=== PATIENT | male | born 2000 | race Caucasian/White ===

== ENCOUNTER 2021-06-17 16:47 | Observation (INO) ==
[2021-06-17] MEDS ORDERED: LORazepam 2 MG/4 ML VIAL ONE (16:53)
[2021-06-17] MEDS ORDERED: SODIUM CHLORIDE 0.9% 1000ML 1,000 ML IV ONE ×2 (16:53→17:52)
[2021-06-17] MEDS ORDERED: THIAMINE HCL 200 MG in SODIUM CHLORIDE 0.9% 50 ML IV STA (16:53)
[2021-06-17] MEDS ORDERED: LORazepam 2 MG/4 ML VIAL IV STA (16:53)
--- NOTE | 2021-06-17 17:05 | Emergency Department Note ---
Impression & Plan Alcohol withdrawal, Rhabdomyolysis ED Provider Note NAME: YONY KOWALSKI AGE: 20 SEX: M : 2000 ARRIVES VIA: Ambulance INFORMANT: Patient, EMS ED PROVIDER(S): Andreas Roberson DO CHIEF COMPLAINT: Muscle cramps HPI: The patient is a 20-year-old male who presented to the emergency department by ambulance for muscle cramping. The patient started having muscle cramping mostly in his legs over the course the last few hours. The patient was very diaphoretic. 911 was called. On route the patient received IV fluids. The patient denies having any chest pain or shortness of breath but does complain of palpitations. He denies having any abdominal pain nausea or vomiting. The patient does admit to daily alcohol use but has not used any alcohol over the last 48 hours. He denies having any headache or recent trauma. He states he has severe muscle cramping over both lower extremities. He states the pain is moderate to severe. He denies any trauma to his legs. He denies having any rectal bleeding. He has no history of withdrawal or alcohol-related seizures. ROS: See above HPI for pertinent positives & negatives. A total of 10 systems reviewed and were otherwise negative. PAST MEDICAL HISTORY: See Below PAST SURGICAL HISTORY: See Below FAMILY HISTORY: See Below SOCIAL HISTORY: See Below HOME MEDICATIONS: See Below ALLERGIES: See Below VITALS: See Below PHYSICAL EXAMINATION: GENERAL: The patient is awake and alert. The patient is very anxious appearing and appears to be in significant distress. EYES: The conjunctivae are clear. The pupils are round and reactive. EARS, NOSE, MOUTH AND THROAT: The nose is without any evidence of any deformity. NECK: The neck is nontender and supple. RESPIRATORY: Normal respiratory effort is noted there is no evidence of wheezing rhonchi or rales CARDIOVASCULAR: Tachycardic and regular heart sounds were noted to auscultation. There is no murmur. GASTROINTESTINAL: The abdomen is soft. Abdomen is nontender. MUSCULOSKELETAL/EXTREMITIES: There is no evidence of gross deformity full range of motion is noted in the hips and shoulders. SKIN: Skin is cool and diaphoretic. There was no significant pedal edema noted.. NEUROLOGIC: Patient is awake alert and oriented x3 strength is symmetric patellar reflexes are 2+ bilaterally MEDICAL DECISION MAKING: The patient is a 20-year-old male who presented to the emergency department for an evaluation of leg pain. The patient arrived via ambulance. He was very diaphoretic. He was very tachycardic and hypertensive. The patient admitted to significant amounts of alcohol use but has not used alcohol in the last 48 hours. His history and physical exam appear to be consistent with withdrawal. He was treated with IV fluids in the emergency department as well as IV Ativan. On reevaluation he was significantly improved. I discussed the patient's laboratory and radiographic studies with him. Given his findings I also [facility] have agreed to evaluate the patient in the emergency department for further management and disposition. Triage Nursing notes reviewed. Prior medical records reviewed Vital Signs: reviewed and remarkable for no significant abnormalities Differential diagnosis: Overdose, toxicologic, infection, hypoglycemia, electrolyte abnormalities, cardiac sources, intracerebral event, neurologic, trauma, as well as other pathologies. ER treatment provided: See below Diagnostics interpreted by me: ECG: EKG was obtained in the emergency department. My interpretation is sinus tachycardia at 109 bpm. There was no ectopy. There was no acute ST segment abnormalities noted. Diffuse Q waves were noted. No previous tracing was available. Cardiac Monitoring: An order was placed for continuous cardiac monitoring. The monitor shows a rate of 77 bpm with sinus rhythm. Laboratory studies: As stated above and show below. Imaging studies: See below Consultation(s): [id number]: I discussed this case with Diana [facility] will [facility] the patient in the emergency department. Past Med/Surg History Medical History (Updated 06/18/21 @ 00:14 by Andreas Roberson DO) History of anxiety History of depression Social History Smoking Status: Never smoker Tobacco Type: Cigarettes Hx Alcohol Use: Yes Alcohol type: hard liquor Alcohol Intake Frequency: 4 or More x per/Week Hx Substance Use: Yes Prescribed Medications: Marijuana Preferred Language: Guamanian Communication Ability: Effective Beliefs That Will Affect Care: None Current Living Situation: Parent Current Living Situation Comment: lives with Mom Feels Safe at Home: No Is there a partner from a previous relationship who is making you feel unsafe now?: No Any Concerns about Your Family Situation: No Allergies Allergies Allergy/AdvReac Type Severity Reaction Status Date / Time No Known Allergies Allergy Unverified 06/17/21 17:39 Home Meds Home Medications Medication Instructions Recorded Confirmed bupropion HCl 150 mg 24 hr tablet, 150 mg PO DAILY 06/17/21 06/17/21 extended release escitalopram oxalate 10 mg tablet 10 mg PO DAILY 06/17/21 06/17/21 Results & Data (ED) Vital Signs Vital Signs - 24 hr 06/17/21 16:59 Temperature 36.8 C Temperature Source Oral Pulse Rate 162 H Pulse Rate [Apical] 162 H Respiratory Rate 33 H Blood Pressure 167/94 H Blood Pressure [Right Arm] 167/94 H Blood Pressure Mean 118 Blood Pressure Mean [Right Arm] 118 Blood Pressure Position Sitting Pulse Oximetry 99 Oxygen Delivery Method Room Air Sepsis Recent Fever Within 48 Hours No Sepsis New/Unexplained Change in Mental Status N/A Sepsis Action Taken by Nursing No Action Required Home Medications Current Medication List: was personally reviewed by me Laboratory Data Attestation: I reviewed the patient's lab results. Result diagrams: 06/17/21 17:10 06/17/21 17:10 Lab Results 06/17/21 06/17/21 06/17/21 Range/Units 17:10 17:10 17:10 WBC 13.61 H (4.8-10.8) K/uL RBC 4.79 (4.7-6.1) M/uL Hgb 14.5 (14.0-18.0) g/dL Hct 43.6 (42-52) % MCV 91.0 (80-100) fL MCH 30.3 (25-34) pg MCHC 33.3 (32-36) g/dL RDW Std Deviation 43.7 (36.4-46.3) fL RDW Coeff of Jazmyn 13.2 (11.5-14.5) % Plt Count 432 H (130-400) K/uL MPV 8.6 (7.4-10.4) fL Immature Gran % (Auto) 0.3 % Neut % (Auto) 78.0 % Lymph % (Auto) 13.0 % Ritchie % (Auto) 8.4 % Eos % (Auto) 0.2 % Baso % (Auto) 0.1 % Neut # (Auto) 10.61 H (1.4-6.5) K/uL Lymph # (Auto) 1.77 (1.2-3.4) K/uL Ritchie # (Auto) 1.14 H (0.11-0.59) K/uL Eos # (Auto) 0.03 (0-0.5) K/uL Baso # (Auto) 0.02 (0-0.2) K/uL Immature Gran # (Auto) 0.04 H (0.00-0.02) K/uL PT 10.9 (9.0-12.0) Seconds INR 1.1 (0.9-1.1) APTT 28.4 (21.0-31.0) Seconds PTT Ratio 1.1 Sodium 140 (136-145) mmol/L Potassium 4.0 (3.5-5.1) mmol/L Chloride 104 (98-107) mmol/L Carbon Dioxide 19 L (21-32) mmol/L Anion Gap 17.0 H (3-11) BUN 16 (7-18) mg/dl Creatinine 1.19 (0.6-1.4) mg/dl Est Cr Clr Drug Dosing 108.7 ml/min Est GFR ( Amer) 101.3 ml/min Est GFR (Non-Af Amer) 87.4 ml/min BUN/Creatinine Ratio 13.0 (10-20) Glucose 143 H (70-99) mg/dl Calcium 9.2 (8.5-10.1) mg/dl Phosphorus (2.5-4.9) mg/dl Magnesium 2.3 (1.8-2.4) mg/dl Total Bilirubin 2.1 H (0.2-1) mg/dl AST 46 H (15-37) U/L ALT 35 (12-78) U/L Alkaline Phosphatase 75 (45-117) U/L Total Creatine Kinase 1136 H (39-308) U/L Troponin I < 0.015 (0-0.045) ng/ml Total Protein 8.5 H (6.4-8.2) gm/dl Albumin 4.4 (3.4-5.0) gm/dl Globulin 4.1 H (2.5-4.0) gm/dl Albumin/Globulin Ratio 1.1 (0.9-2) Lipase 48 L (73-393) U/L Urine Color Urine Appearance (Clear) Urine pH (4.5-7.5) Ur Specific [place] (1.000-1.030) Urine Protein (Negative) Urine Glucose (UA) (Negative) Urine Ketones (Negative) Urine Blood (Negative) Urine Nitrite (Negative) Urine Bilirubin (Negative) Urine Urobilinogen (Negative) Ur Leukocyte Esterase (Negative) Urine WBC (Auto) (0-5) /hpf Urine RBC (Auto) (0-4) /hpf U Hyaline Cast (Auto) (0-5) /lpf U Epithel Cells (Auto) (0-5) /lpf Urine Bacteria (Auto) (Negative) Salicylates (2.8-20) mg/dl Urine Opiates Screen (Neg) Ur Methadone, Qual (Neg) Acetaminophen (10-30) ug/ml Urine Barbiturates (Neg) Ur Phencyclidine (PCP) (Neg) U Amphetamin/Meth Scrn (Neg) MDMA (Ecstasy) Screen (Neg) U Benzodiazepines Scrn (Neg) Ur Cocaine Metabolite (Neg) U Marijuana (THC) Screen (Neg) Ethyl Alcohol mg/dL (0-3) mg/dl COVID-19 Eval Order SARS-CoV-2 (PCR) (Negative) 06/17/21 06/17/21 06/17/21 Range/Units 17:10 17:10 17:10 WBC (4.8-10.8) K/uL RBC (4.7-6.1) M/uL Hgb (14.0-18.0) g/dL Hct (42-52) % MCV (80-100) fL MCH (25-34) pg MCHC (32-36) g/dL RDW Std Deviation (36.4-46.3) fL RDW Coeff of Jazmyn (11.5-14.5) % Plt Count (130-400) K/uL MPV (7.4-10.4) fL Immature Gran % (Auto) % Neut % (Auto) % Lymph % (Auto) % Ritchie % (Auto) % Eos % (Auto) % Baso % (Auto) % Neut # (Auto) (1.4-6.5) K/uL Lymph # (Auto) (1.2-3.4) K/uL Ritchie # (Auto) (0.11-0.59) K/uL Eos # (Auto) (0-0.5) K/uL Baso # (Auto) (0-0.2) K/uL Immature Gran # (Auto) (0.00-0.02) K/uL PT (9.0-12.0) Seconds INR (0.9-1.1) APTT (21.0-31.0) Seconds PTT Ratio Sodium (136-145) mmol/L Potassium (3.5-5.1) mmol/L Chloride (98-107) mmol/L Carbon Dioxide (21-32) mmol/L Anion Gap (3-11) BUN (7-18) mg/dl Creatinine (0.6-1.4) mg/dl Est Cr Clr Drug Dosing ml/min Est GFR ( Amer) ml/min Est GFR (Non-Af Amer) ml/min BUN/Creatinine Ratio (10-20) Glucose (70-99) mg/dl Calcium (8.5-10.1) mg/dl Phosphorus 2.9 (2.5-4.9) mg/dl Magnesium (1.8-2.4) mg/dl Total Bilirubin (0.2-1) mg/dl AST (15-37) U/L ALT (12-78) U/L Alkaline Phosphatase (45-117) U/L Total Creatine Kinase (39-308) U/L Troponin I (0-0.045) ng/ml Total Protein (6.4-8.2) gm/dl Albumin (3.4-5.0) gm/dl Globulin (2.5-4.0) gm/dl Albumin/Globulin Ratio (0.9-2) Lipase (73-393) U/L Urine Color Urine Appearance (Clear) Urine pH (4.5-7.5) Ur Specific [place] (1.000-1.030) Urine Protein (Negative) Urine Glucose (UA) (Negative) Urine Ketones (Negative) Urine Blood (Negative) Urine Nitrite (Negative) Urine Bilirubin (Negative) Urine Urobilinogen (Negative) Ur Leukocyte Esterase (Negative) Urine WBC (Auto) (0-5) /hpf Urine RBC (Auto) (0-4) /hpf U Hyaline Cast (Auto) (0-5) /lpf U Epithel Cells (Auto) (0-5) /lpf Urine Bacteria (Auto) (Negative) Salicylates (2.8-20) mg/dl Urine Opiates Screen (Neg) Ur Methadone, Qual (Neg) Acetaminophen (10-30) ug/ml Urine Barbiturates (Neg) Ur Phencyclidine (PCP) (Neg) U Amphetamin/Meth Scrn (Neg) MDMA (Ecstasy) Screen (Neg) U Benzodiazepines Scrn (Neg) Ur Cocaine Metabolite (Neg) U Marijuana (THC) Screen (Neg) Ethyl Alcohol mg/dL < 3.0 (0-3) mg/dl COVID-19 Eval Order SARS-CoV-2 (PCR) (Negative) 06/17/21 06/17/21 06/17/21 Range/Units 17:31 17:31 18:17 WBC (4.8-10.8) K/uL RBC (4.7-6.1) M/uL Hgb (14.0-18.0) g/dL Hct (42-52) % MCV (80-100) fL MCH (25-34) pg MCHC (32-36) g/dL RDW Std Deviation (36.4-46.3) fL RDW Coeff of Jazmyn (11.5-14.5) % Plt Count (130-400) K/uL MPV (7.4-10.4) fL Immature Gran % (Auto) % Neut % (Auto) % Lymph % (Auto) % Ritchie % (Auto) % Eos % (Auto) % Baso % (Auto) % Neut # (Auto) (1.4-6.5) K/uL Lymph # (Auto) (1.2-3.4) K/uL Ritchie # (Auto) (0.11-0.59) K/uL Eos # (Auto) (0-0.5) K/uL Baso # (Auto) (0-0.2) K/uL Immature Gran # (Auto) (0.00-0.02) K/uL PT (9.0-12.0) Seconds INR (0.9-1.1) APTT (21.0-31.0) Seconds PTT Ratio Sodium (136-145) mmol/L Potassium (3.5-5.1) mmol/L Chloride (98-107) mmol/L Carbon Dioxide (21-32) mmol/L Anion Gap (3-11) BUN (7-18) mg/dl Creatinine (0.6-1.4) mg/dl Est Cr Clr Drug Dosing ml/min Est GFR ( Amer) ml/min Est GFR (Non-Af Amer) ml/min BUN/Creatinine Ratio (10-20) Glucose (70-99) mg/dl Calcium (8.5-10.1) mg/dl Phosphorus (2.5-4.9) mg/dl Magnesium (1.8-2.4) mg/dl Total Bilirubin (0.2-1) mg/dl AST (15-37) U/L ALT (12-78) U/L Alkaline Phosphatase (45-117) U/L Total Creatine Kinase (39-308) U/L Troponin I (0-0.045) ng/ml Total Protein (6.4-8.2) gm/dl Albumin (3.4-5.0) gm/dl Globulin (2.5-4.0) gm/dl Albumin/Globulin Ratio (0.9-2) Lipase (73-393) U/L Urine Color Dark Yellow Urine Appearance Turbid A (Clear) Urine pH 5.5 (4.5-7.5) Ur Specific [place] 1.034 H (1.000-1.030) Urine Protein 1+ H (Negative) Urine Glucose (UA) 1+ H (Negative) Urine Ketones 2+ H (Negative) Urine Blood Negative (Negative) Urine Nitrite Negative (Negative) Urine Bilirubin 1+ H (Negative) Urine Urobilinogen Negative (Negative) Ur Leukocyte Esterase Negative (Negative) Urine WBC (Auto) 1-5 (0-5) /hpf Urine RBC (Auto) 0-4 (0-4) /hpf U Hyaline Cast (Auto) 10-30 H (0-5) /lpf U Epithel Cells (Auto) 10-20 H (0-5) /lpf Urine Bacteria (Auto) Negative (Negative) Salicylates (2.8-20) mg/dl Urine Opiates Screen (Neg) Ur Methadone, Qual (Neg) Acetaminophen (10-30) ug/ml Urine Barbiturates (Neg) Ur Phencyclidine (PCP) (Neg) U Amphetamin/Meth Scrn (Neg) MDMA (Ecstasy) Screen (Neg) U Benzodiazepines Scrn (Neg) Ur Cocaine Metabolite (Neg) U Marijuana (THC) Screen (Neg) Ethyl Alcohol mg/dL (0-3) mg/dl COVID-19 Eval Order Covid19 at [facility] SARS-CoV-2 (PCR) NEGATIVE (Negative) 06/17/21 Range/Units 18:17 WBC (4.8-10.8) K/uL RBC (4.7-6.1) M/uL Hgb (14.0-18.0) g/dL Hct (42-52) % MCV (80-100) fL MCH (25-34) pg MCHC (32-36) g/dL RDW Std Deviation (36.4-46.3) fL RDW Coeff of Jazmyn (11.5-14.5) % Plt Count (130-400) K/uL MPV (7.4-10.4) fL Immature Gran % (Auto) % Neut % (Auto) % Lymph % (Auto) % Ritchie % (Auto) % Eos % (Auto) % Baso % (Auto) % Neut # (Auto) (1.4-6.5) K/uL Lymph # (Auto) (1.2-3.4) K/uL Ritchie # (Auto) (0.11-0.59) K/uL Eos # (Auto) (0-0.5) K/uL Baso # (Auto) (0-0.2) K/uL Immature Gran # (Auto) (0.00-0.02) K/uL PT (9.0-12.0) Seconds INR (0.9-1.1) APTT (21.0-31.0) Seconds PTT Ratio Sodium (136-145) mmol/L Potassium (3.5-5.1) mmol/L Chloride (98-107) mmol/L Carbon Dioxide (21-32) mmol/L Anion Gap (3-11) BUN (7-18) mg/dl Creatinine (0.6-1.4) mg/dl Est Cr Clr Drug Dosing ml/min Est GFR ( Amer) ml/min Est GFR (Non-Af Amer) ml/min BUN/Creatinine Ratio (10-20) Glucose (70-99) mg/dl Calcium (8.5-10.1) mg/dl Phosphorus (2.5-4.9) mg/dl Magnesium (1.8-2.4) mg/dl Total Bilirubin (0.2-1) mg/dl AST (15-37) U/L ALT (12-78) U/L Alkaline Phosphatase (45-117) U/L Total Creatine Kinase (39-308) U/L Troponin I (0-0.045) ng/ml Total Protein (6.4-8.2) gm/dl Albumin (3.4-5.0) gm/dl Globulin (2.5-4.0) gm/dl Albumin/Globulin Ratio (0.9-2) Lipase (73-393) U/L Urine Color Urine Appearance (Clear) Urine pH (4.5-7.5) Ur Specific [place] (1.000-1.030) Urine Protein (Negative) Urine Glucose (UA) (Negative) Urine Ketones (Negative) Urine Blood (Negative) Urine Nitrite (Negative) Urine Bilirubin (Negative) Urine Urobilinogen (Negative) Ur Leukocyte Esterase (Negative) Urine WBC (Auto) (0-5) /hpf Urine RBC (Auto) (0-4) /hpf U Hyaline Cast (Auto) (0-5) /lpf U Epithel Cells (Auto) (0-5) /lpf Urine Bacteria (Auto) (Negative) Salicylates (2.8-20) mg/dl Urine Opiates Screen Neg (Neg) Ur Methadone, Qual Neg (Neg) Acetaminophen (10-30) ug/ml Urine Barbiturates Neg (Neg) Ur Phencyclidine (PCP) Neg (Neg) U Amphetamin/Meth Scrn Neg (Neg) MDMA (Ecstasy) Screen Pos H (Neg) U Benzodiazepines Scrn Neg (Neg) Ur Cocaine Metabolite Pos H (Neg) U Marijuana (THC) Screen Pos H (Neg) Ethyl Alcohol mg/dL (0-3) mg/dl COVID-19 Eval Order SARS-CoV-2 (PCR) (Negative) Administered Medications Folic Acid (Folic Acid 1 Mg Tab) 1 mg PO QAM [facility] Stop: 07/17/21 20:09 Last Admin: 06/17/21 21:51 Dose: 1 mg Documented by: [id number] Sodium Chloride (Nss 1000ml) 1,000 mls @ 150 mls/hr IV .Q6H40M [facility] Stop: 06/18/21 16:09 Last Admin: 06/17/21 20:51 Dose: 150 mls/hr Documented by: [id number] Thiamine HCl (Thiamine Hcl 100 Mg Tab) 100 mg PO QAM JONAH Stop: 07/17/21 20:09 Last Admin: 06/17/21 21:51 Dose: 100 mg Documented by: [id number] Discontinued Medications Gabapentin (Gabapentin 800mg Alcohol Withdrawal Load) 1 ea PO NOW STA; Protocol Stop: 06/17/21 19:28 Last Admin: 06/17/21 20:42 Dose: 1 ea Documented by: [id number] Gabapentin (Gabapentin 400 Mg Cap) 800 mg PO NOW ONE Stop: 06/17/21 19:28 Last Admin: 06/17/21 21:51 Dose: 800 mg Documented by: [id number] Lorazepam (Ativan) 2 mg in 4 mls @ 4 mls/min IV NOW STA Stop: 06/17/21 16:54 Last Admin: 06/17/21 17:25 Dose: 4 mls/min Documented by: [id number] Sodium Chloride (Nss 1000ml) 1,000 mls @ 999 mls/hr IV .Q1H1M ONE Stop: 06/17/21 17:53 Last Infusion: 06/17/21 18:18 Dose: 0 mls/hr Documented by: [id number] Admin: 06/17/21 17:04 Dose: 999 mls/hr Documented by: [id number] Thiamine HCl 200 mg/ Sodium (Chloride) 52 mls @ 208 mls/hr IV NOW STA Stop: 06/17/21 17:07 Last Infusion: 06/17/21 18:18 Dose: 0 mls/hr Documented by: [id number] Admin: 06/17/21 17:48 Dose: 208 mls/hr Documented by: [id number] Sodium Chloride (Nss 1000ml) 1,000 mls @ 999 mls/hr IV .Q1H1M ONE Stop: 06/17/21 18:52 Last Infusion: 06/17/21 18:18 Dose: 0 mls/hr Documented by: [id number] Admin: 06/17/21 18:01 Dose: 999 mls/hr Documented by: [id number] Lorazepam (Lorazepam 2 Mg/4 Ml Vial) Confirm Administered Dose 2 mg .ROUTE .STK- MED ONE Stop: 06/17/21 16:54 Last Increment: 06/17/21 17:19 Dose: 1 mg Documented by: [id number] Imaging Data Radiologist's Impression: Chest X-Ray 06/17/21 16:53 SINGLE VIEW CHEST CLINICAL HISTORY: Palpitations. FINDINGS: An AP, portable, upright chest radiograph is obtained. No prior studies are available for comparison at the time of dictation. The cardiomediastinal silhouette is unremarkable. The lungs and pleural spaces are clear. No pneumothorax is seen. The bony thorax is grossly intact. IMPRESSION: No active disease in the chest. ACT 112: Negative or not required by law. Electronically signed by: Taj Cooper M.D. 06/17/2021 5:28 PM Discharge Plan Visit Data Chief Complaint: Illness Stated Complaint: Leg cramps ED Provider: Andreas Roberson Discharge Problem: Alcohol withdrawal, Rhabdomyolysis Patient Disposition: Admitted As Inpatient Condition: Good Discharge Instructions Interventions: ED Discharge Assessment Last Done: 06/17/21 19:54 Discharge Problem: Alcohol withdrawal Qualifiers: Complication of substance-induced condition: with unspecified complication Qualified Code(s): F10.239 - Alcohol dependence with withdrawal, unspecified Rhabdomyolysis Qualifiers: Rhabdomyolysis type: non-traumatic Qualified Code(s): M62.82 - Rhabdomyolysis
[2021-06-17 17:23] LABS: Basophils # (auto) 0.02 K/uL (0-0.2); Basophils % (auto) 0.1 %; Eosinophils # (auto) 0.03 K/uL (0-0.5); Eosinophils % (auto) 0.2 %; Hematocrit (blood only) 43.6 % (42-52); Hemoglobin 14.5 g/dL (14.0-18.0); Immature Granulocytes # (auto) 0.04 K/uL (0.00-0.02); Immature Granulocytes % (auto) 0.3 %; Lymphocytes # (auto) 1.77 K/uL (1.2-3.4); Mean Corpuscular Hemoglobin 30.3 pg (25-34); Mean Corpuscular Hgb Conc 33.3 g/dL (32-36); Mean Platelet Volume 8.6 fL (7.4-10.4); Monocytes # (auto) 1.14 K/uL (0.11-0.59); Monocytes % (auto) 8.4 %; Neutrophils # (auto) 10.61 K/uL (1.4-6.5); Platelet Count 432 K/uL (130-400); RDW Coefficient of Variation 13.2 % (11.5-14.5); RDW Standard Deviation 43.7 fL (36.4-46.3); Red Blood Count 4.79 M/uL (4.7-6.1); White Blood Count 13.61 K/uL (4.8-10.8)
--- NOTE | 2021-06-17 17:30 | XRay Report ---
SINGLE VIEW CHEST CLINICAL HISTORY: Palpitations. FINDINGS: An AP, portable, upright chest radiograph is obtained. No prior studies are available for c omparison at the time of dictation. The cardiomediastinal silhouette is unremarkable. The lungs and pleural spaces are clear. No pneumothorax is seen. The bony thorax is grossly intact. IMPRESSION: No active disease in the chest. ACT 112: Negative or not required by law. Electronically signed by: Taj Cooper M.D. 06/17/2021 5:28 PM
[2021-06-17 17:33] LABS: INR 1.1 (0.9-1.1); Partial Thromboplastin Ratio 1.1; Partial Thromboplastin Time 28.4 Seconds (21.0-31.0); Prothrombin Time 10.9 Seconds (9.0-12.0)
[2021-06-17 17:41] LABS: Alanine Aminotransferase 35 U/L (12-78); Albumin Level 4.4 gm/dl (3.4-5.0); Aspartate Aminotransferase 46 U/L (15-37); Blood Urea Nitrogen 16 mg/dl (7-18); Calcium 9.2 mg/dl (8.5-10.1); Carbon Dioxide 19 mmol/L (21-32); Chloride 104 mmol/L (98-107); Creatinine Clr Calc Pharmacy 108.7 ml/min; Est GFR (African American) 101.3 ml/min; Est GFR (Non-African American) 87.4 ml/min; Glucose 143 mg/dl (70-99); Lipase 48 U/L (73-393); Magnesium 2.3 mg/dl (1.8-2.4); Sodium 140 mmol/L (136-145)
[2021-06-17 17:56] LABS: Albumin Globulin Ratio 1.1 (0.9-2); Alkaline Phosphatase 75 U/L (45-117); Bilirubin,Total 2.1 mg/dl (0.2-1); Creatine Kinase 1136 U/L (39-308); Globulin 4.1 gm/dl (2.5-4.0); Total Protein 8.5 gm/dl (6.4-8.2); Troponin I < 0.015 ng/ml (0-0.045)
--- NOTE | 2021-06-17 18:40 | History & Physical Report ---
Date of Service June 17, 2021 Assessment & Plan (1) Alcohol withdrawal: Plan: -Admit to [facility] with telemetry -Alcohol withdrawal scoring, gabapentin load and taper - Tachycardia with HR in 160s, monitor - Administered Ativan IV in the ER, likely what is causing him to be slightly drowsy currently, patient reports feeling overall better at this point - NSS at 150 ml/hr x 3 bags then if tolerating po intake can reduce fluids - Thiamine, folic acid, and mvi ordered - Check CT head with hx of possible fall -I cannot find record of previous ER visit Friday night, however the patient mentions that he has a fake ID which he uses to buy alcohol since he is undera [employer], and question if a different patient account was created during that visit ?? -Psych consult - will need outpatient therapy, counseling, continue wellbutrin and lexapro for now (2) Rhabdomyolysis: Plan: - IVFs as above - Bruising on bilateral wrists, ? from restraints on Friday? small amount of ecchymosis on posterior R triceps region ? from blood pressure cuff - CT head as above - No other focal point of obvious injury (3) History of anxiety: Plan: - Psych consult - continue medications as above (4) History of depression: Plan: - Psych consult - continue medications as above (5) Marijuana use: Plan: - Cessation advised DVT PPx: - teds CODE: Full code Dispo: From home, likely to remain in the hospital x 1-2 days History of Present Illness Chief Complaint: This is a 20 yo M with PMHx of anxiety, depression who presents with severe muscle cramps in his legs. His girlfriend and her mother are present with him at bedside. They report that he was here on Friday after being picked up by police and brought in for alcohol intoxication. He required soft restraints around his wrists due to aggitation. They are unaware if he fell at some point on Friday, however were told that at that time his potassium was low, it was replaced, he was given fluids and he was sent home. 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 The patient presented today with increased sweating, palpitations, dizziness, and generalized ill feeling with severe muscle soreness everywhere. Yesterday he was nauseous and vomited at home. He reports his urine is dark today compared to normal. Patient admits that he typically drinks maximum one quarter of a bottle of tequila daily, sometimes mixed with beer or other liquor such as vodka. The last time he drank alcohol was on Friday night. When asked if he wants to stop drinking alcohol, he says "in general, no". He uses a fake ID to obtain alcohol or else has other friends by his alcohol for him. He smokes marijuana routinely, 2-10 times daily. Girlfriend reports patient's father was an addict of recreational drugs, but not alcohol. He has a cousin who also drinks large amounts of alcohol. He does not smoke tobacco. He follows with psychiatry as an outpatient, but cannot recall the last time he seen them. He has been taking Wellbutrin 150 mg daily as well as Lexapro 10 mg daily for anxiety and depression. Missed these doses yesterday but other than that takes them routinely. He is found to be in rhabdomyolysis with a CK level = 1136, and appears to be in acute alcohol withdrawal. AST is mildly elevated at 46, anion gap of 17, leukocytosis with 13.6. Glucose is slightly elevated at 143 however he has not been able to eat anything today. Primary Care Provider: NO PCP Allergies Allergy/AdvReac Type Severity Reaction Status Date / Time No Known Allergies Allergy Unverified 06/17/21 17:39 Home Medications Medication Instructions Recorded Confirmed Type bupropion HCl 150 mg 24 hr tablet, 150 mg PO DAILY 06/17/21 06/17/21 History extended release escitalopram oxalate 10 mg tablet 10 mg PO DAILY 06/17/21 06/17/21 History Past Med/Surg History Medical History (Updated 06/18/21 @ 00:14 by Andreas Roberson DO) History of anxiety History of depression Social History Smoking Status: Never smoker Tobacco Type: Cigarettes Hx Alcohol Use: Yes Alcohol type: hard liquor Alcohol Intake Frequency: 4 or More x per/Week Hx Substance Use: Yes Prescribed Medications: Marijuana Preferred Language: Cypriot Communication Ability: Effective Beliefs That Will Affect Care: None Current Living Situation: Parent Current Living Situation Comment: lives with Mom Feels Safe at Home: No Is there a partner from a previous relationship who is making you feel unsafe now?: No Any Concerns about Your Family Situation: No Review of Systems Review of Systems: Constitutional: No fever, + sweats and chills Eyes: No diplopia, no worsening or blurred vision ENT: normal hearing, no trouble swallowing Respiratory: No cough, sputum, dyspnea at rest or on exertion Cardiovascular: No chest pain, tightness or palpitations Abdomen: No pain, nausea, vomiting, diarrhea or constipation Musculoskeletal: + Generalized muscle pain everywhere, no joint pain, calf pain, swelling Neurologic: No weakness, numbness/tingling, or balance problems Psychiatric: + Anxiety and depression on medication Skin: No rash or itch Physical Exam Physical Exam: General: awakens to verbal stimuli, but drifts off to sleep during exam, no apparent distress Head: Normocephalic, atraumatic ENT: PERRL, EOMI, no pharyngeal exudate, mucous membranes moist, no conjunctival hemorrhage Chest: Clear to auscultation, on room air, no adventitious breath sounds Cardiac: Regular rate and rhythm, no murmur, no JVD, normal peripheral pulses, good capillary refill Abdominal: NABS x 4 quadrants, soft, nondistended, nontender to palpation, no rebound or guarding Extremities: + Ecchymosis around wrists bilaterally, small area of ecchymosis on triceps region of right arm, no other areas of bruising noted, small abrasions over right gtz, otherwise normal inspection, no peripheral edema or erythema, calfs nontender to palpation Psych: Depressed mood and affect, denies SI or HI Neuro: AAO x 3, strength intact bilaterally and rated 5/5, no motor deficits, + slight tremor, speech is clear, no peripheral sensory deficits, no asterixis Results & Data Results & Data ([facility]) Vital Signs (Past 12 Hours) Vital Signs Temp Pulse Pulse Resp BP BP Pulse Ox 06/17/21 16:59 36.8 C 162 H 162 H 33 H 167/94 H 167/94 H 99 Diagnostic Findings Chest X-Ray 06/17/21 16:53 SINGLE VIEW CHEST CLINICAL HISTORY: Palpitations. FINDINGS: An AP, portable, upright chest radiograph is obtained. No prior studies are available for comparison at the time of dictation. The cardiomediastinal silhouette is unremarkable. The lungs and pleural spaces are clear. No pneumothorax is seen. The bony thorax is grossly intact. IMPRESSION: No active disease in the chest. ACT 112: Negative or not required by law. Electronically signed by: Taj Cooper M.D. 06/17/2021 5:28 PM ECG Rhythm: sinus tachycardia Additional Comments: EKG pending Code Status & VTE Plan Code Status Full code-discussed with patient at bedside Supervising Physician Co-Signing Physician Notes Attending addendum: The patient was seen and examined in the emergency room in presence of the girlfriend He was in the ER with alcoholism on Friday last and was sent home He is here today with dizziness, palpitation and confusion with shakiness Noted to have tachycardic with tremors involving the outstretched hands On examination Drowsy from the effect of medications but otherwise conversive Hemodynamically stable with tachycardia which is improved Chestclear to auscultate bilaterally HeartS1, S2, no murmur Abdomenbenign Extremitiesno edema. Has minor bruising involving multiple areas of the body CNSalert, awake and oriented x3. Drowsiness from medications no,nystagmus and has tremors involving the outstretched hands His labs, EKG and imaging studies reviewed Alcoholism with withdrawal symptoms Increasing CPK Agree with assessment and plan as outlined above by Rosmery Swenson
[2021-06-17 18:54] LABS: Appearance Urine Turbid (Clear); Bacteria Urine Automated Negative (Negative); Blood Urine Negative (Negative); Color Urine Dark Yellow; Glucose Urine UA 1+ (Negative); Ketones Urine 2+ (Negative); Leukocyte Esterase Urine Negative (Negative); Nitrite Urine Negative (Negative); Protein Urine 1+ (Negative); RBC Urine Automated 0-4 /hpf (0-4); Specific Gravity Urine 1.034 (1.000-1.030); Urobilinogen Urine Negative (Negative); pH Urine 5.5 (4.5-7.5)
[2021-06-17 19:02] LABS: Bilirubin Urine 1+ (Negative)
[2021-06-17 19:14] LABS: Amphetamines+Metham, Urine Neg (Neg); Barbiturates, Urine Neg (Neg); Benzodiazepine, Urine Neg (Neg); Cocaine, Urine Pos (Neg); MDMA (Ecstacy), Urine Pos (Neg); Methadone, Urine Neg (Neg); Opiate, Urine Neg (Neg); Phencyclidine, Urine Neg (Neg)
[2021-06-17] MEDS ORDERED: GABAPENTIN 400 MG CAP PO ONE (19:27)
[2021-06-17] MEDS ORDERED: GABAPENTIN 800MG ALCOHOL WITHDRAWAL LOAD PO STA (19:27)
--- NOTE | 2021-06-17 20:04 | CT Scan Report ---
CT SCAN OF THE BRAIN WITHOUT IV CONTRAST CLINICAL HISTORY: Change in mental status. COMPARISON STUDY: No priors. TECHNIQUE: Unenhanced axial CT scan of the brain is performed from the vertex to the skull base. A d ose lowering technique was utilized adhering to the principles of ALARA. CT DOSE: 537.48 mGy.cm FINDINGS: Brain parenchyma: The brain parenchyma is normal in appearance. There is no hemorrhage, mass effect, or evidence of acute territorial ischemia by CT criteria. Bloom-white matter differentiation is preser paulino. No extra-axial fluid collection is seen. Ventricles, sulci, cisterns: Normal in configuration. Intracranial vasculature: The visualized intracranial vasculature at the skull base is normal in appe arance. Calvarium: Unremarkable. Sinuses and mastoids: The visualized paranasal sinuses are clear. The mastoid air cells are well pneu matized. Orbits: The bony orbits are grossly intact. IMPRESSION: No acute intracranial abnormality. ACT 112: Negative or not required by law. Electronically signed by: Taj Cooper M.D. 06/17/2021 8:02 PM
[2021-06-17] MEDS ORDERED: ACETAMINOPHEN 325 MG TAB PO PRN (20:10)
[2021-06-17] MEDS ORDERED: ONDANSETRON INJ 2 MG/ML 2 ML VIAL IV PRN (20:10)
[2021-06-17] MEDS ORDERED: LORazepam 1 MG/2 ML VIAL IV PRN ×2 (20:10→20:33)
[2021-06-17] MEDS ORDERED: ATIVAN IV ALCOHOL WITHDRAWL IV PRN ×2 (20:10→20:33)
[2021-06-17] MEDS ORDERED: LORazepam 3 MG/6 ML VIAL IV PRN (20:33)
[2021-06-17] MEDS ORDERED: LORazepam 2 MG/4 ML VIAL IV PRN (20:33)
[2021-06-17] MEDS: SODIUM CHLORIDE 0.9% 1000ML 1,000 ML IV SCH (20:51)
[2021-06-17] MEDS ORDERED: cloNIDine HCL 0.1 MG TAB PO PRN (20:59)
[2021-06-17] MEDS: THIAMINE HCL 100 MG TAB PO SCH (21:51)
[2021-06-17] MEDS: FOLIC ACID 1 MG TAB PO SCH (21:51)
[2021-06-18] MEDS: SODIUM CHLORIDE 0.9% 1000ML 1,000 ML IV SCH ×2 (04:05→10:58)
[2021-06-18 06:24] LABS: Hematocrit (blood only) 37.6 % (42-52); Hemoglobin 12.2 g/dL (14.0-18.0); Mean Corpuscular Hemoglobin 29.5 pg (25-34); Mean Corpuscular Hgb Conc 32.4 g/dL (32-36); Mean Platelet Volume 8.6 fL (7.4-10.4); Platelet Count 274 K/uL (130-400); RDW Coefficient of Variation 13.4 % (11.5-14.5); RDW Standard Deviation 44.9 fL (36.4-46.3); Red Blood Count 4.13 M/uL (4.7-6.1); White Blood Count 6.94 K/uL (4.8-10.8)
[2021-06-18] MEDS: GABAPENTIN 400 MG CAP PO SCH ×3 (06:29→21:01)
[2021-06-18 07:19] LABS: Alanine Aminotransferase 28 U/L (12-78); Albumin Globulin Ratio 1.1 (0.9-2); Albumin Level 3.5 gm/dl (3.4-5.0); Alkaline Phosphatase 58 U/L (45-117); Aspartate Aminotransferase 32 U/L (15-37); BUN Creatinine Ratio 16.9 (10-20); Bilirubin Direct 0.3 mg/dl (0-0.2); Bilirubin,Total 1.7 mg/dl (0.2-1); Blood Urea Nitrogen 12 mg/dl (7-18); Calcium 8.5 mg/dl (8.5-10.1); Carbon Dioxide 22 mmol/L (21-32); Chloride 109 mmol/L (98-107); Est GFR (African American) > 150.0 ml/min; Est GFR (Non-African American) 136.7 ml/min; Globulin 3.3 gm/dl (2.5-4.0); Glucose 67 mg/dl (70-99); Magnesium 2.3 mg/dl (1.8-2.4); Phosphorus 3.2 mg/dl (2.5-4.9); Potassium 3.8 mmol/L (3.5-5.1); Sodium 141 mmol/L (136-145); Total Protein 6.8 gm/dl (6.4-8.2)
[2021-06-18] MEDS: THIAMINE HCL 100 MG TAB PO SCH (09:31)
[2021-06-18] MEDS: MULTIVITAMIN TAB PO SCH (09:31)
[2021-06-18] MEDS: FOLIC ACID 1 MG TAB PO SCH (09:31)
--- NOTE | 2021-06-18 13:14 | Psychiatric Consultation ---
Date of Consultation June 18, 2021 Impression / Recommendations Impression 20-year-old male admitted for rhabdomyolysis after episode of intoxication where patient was restrained. On this presentation patient also tested positive for some drug use. Patient is denying any acute psychiatric symptoms, and despite taking psychiatric medications denies issues with mood. No overt symptoms seen. Patient has appropriate psychiatric follow-up and is willing to engage in care. He was educated as to how his drug use is problematic, but is not interested in rehab at this time. Patient is cleared from a psychiatric perspective. (1) Alcohol withdrawal: Complication of substance-induced condition: with unspecified complication Qualified Code(s): F10.239 - Alcohol dependence with withdrawal, unspecified Continue medical management of rhabdo, withdrawal Patient is cleared from a psychiatric perspective Follow-up outpatient Psych History Chief Complaint "Im feeling better". History of Present Illness HPI as per psychiatric liaison "Patient is a 20 year old [facility] justin who was moving to [place] from [place]. States he had lost 2 of this boxes and began to feel like he was having a panic attack (states it was his first ever panic attack) and became really upset and had chest tightness. He remembers hearing he had low potassium and wondered if that was the cause. He admits to drinking, using marijuana and cocaine during move-in weekend, when the boxes were misplaced. States his mother, a teacher from [place], [place], may be coming to [place] to assist him with finding the missing boxes. Patient states he takes lexapro 10 mg daily and wellbutrin 150 mg daily, since 2019 and the medications may have been in the missing boxes. Dr. Andre Reeves, psychiatrist from [place], prescribes patient's medications. Patient also sees a therapist, Dr. Karolina Miller, whom patient has been seeing for the last 3 months via zoom. Patient did sign releases for both providers. Patient believes the lexapro and the wellbutrin have been helpful and scored a 3 on the PHQ9. "I've been feeling pretty good". States he feels rested, despite waking up a few times during the night. Denies any appetite for the last 2 days, but states before that his appetite had been good. Denies any suicidal/homicidal thoughts, denies any family history of attempts. States his maternal uncle is a high functioning alcoholic. Patient admits to being impulsive at times, but denies frequent risky behaviors. Patient is an only child and reports his father when patient was 5 years old. Reports his mother is his biggest support and his girlfriend, whom he has been seeing for 10 months." Upon evaluation patient acknowledged the above information is accurate. He denies any suicidal or homicidal ideation. He denies any acute anxiety. He denies any psychosis, paranoia, manic symptoms. He acknowledges that his drug use can be problematic at times, but denies that this is a recurrent trend. . Denies need for rehab. Willing to continue with and follow-up with outpatient providers. Allergies Allergy/AdvReac Type Severity Reaction Status Date / Time No Known Allergies Allergy Unverified 06/17/21 17:39 Home Medications Medication Instructions Recorded Confirmed Type bupropion HCl 150 mg 24 hr tablet, 150 mg PO DAILY 06/17/21 06/17/21 History extended release escitalopram oxalate 10 mg tablet 10 mg PO DAILY 06/17/21 06/17/21 History Personal History Beliefs That Will Affect Care: None Patient History Medical History (Updated 06/18/21 @ 00:14 by Andreas Roberson DO) History of anxiety History of depression Social History Smoking Status: Never smoker Tobacco Type: Cigarettes Hx Alcohol Use: Yes Alcohol type: hard liquor Alcohol Intake Frequency: 4 or More x per/Week Hx Substance Use: Yes Prescribed Medications: Marijuana Preferred Language: Hebrew Communication Ability: Effective Beliefs That Will Affect Care: None Current Living Situation: Parent Current Living Situation Comment: lives with Mom Feels Safe at Home: No Is there a partner from a previous relationship who is making you feel unsafe now?: No Any Concerns about Your Family Situation: No Assistive Devices: None Physical Exam Psychiatric: Orientation: alert and oriented x 3 Apperance: appropriately groomed Eye Contact: good eye contact Motor Behavior: no abnormal motor movements Speech: normal rate/rhythm/volume of speech Affect: euthymic affect Mood: no depressed mood and no dysphoric mood Thought Process: goal directed thought process and linear/logical thought process Thought Content: reality based without delusions Suicidal Thoughts: + reports suicidal thoughts and + reports suicidal plan Homicidal Thoughts: + reports homicidal thoughts and + reports homicidal plan Hallucinations: no auditory hallucinations and no visual hallucinations Cognition: recent memory grossly intact Estimated Intelligence: average estimated intelligence Insight: + fair insight Judgement: + fair judgement Vital Signs (Past 24 Hours): Last Vital Signs Temp 36.8 C 06/18/21 11:13 Pulse 100 H 06/18/21 11:13 Resp 16 06/18/21 11:13 BP 122/69 06/18/21 11:13 Pulse Ox 98 06/18/21 11:13 Review of Systems All systems reviewed & are unremarkable except as noted in HPI & below Results & Data ([facility]) Medications Administered Folic Acid (Folic Acid 1 Mg Tab) 1 mg PO QAM [facility] Stop: 07/17/21 20:09 Last Admin: 06/18/21 09:31 Dose: 1 mg Documented by: [id number] Admin: 06/17/21 21:51 Dose: 1 mg Documented by: [id number] Sodium Chloride (Nss 1000ml) 1,000 mls @ 150 mls/hr IV .[id number] [facility] Stop: 06/18/21 16:09 Last Admin: 06/18/21 10:58 Dose: 150 mls/hr Documented by: [id number] Infusion: 06/18/21 10:45 Dose: 0 mls/hr Documented by: [id number] Admin: 06/18/21 04:05 Dose: 150 mls/hr Documented by: [id number] Infusion: 06/18/21 03:32 Dose: 150 mls/hr Documented by: [id number] Admin: 06/17/21 20:51 Dose: 150 mls/hr Documented by: [id number] Multivitamins (Multivitamin Tab) [facility] Stop: 07/18/21 08:59 Last Admin: 06/18/21 09:31 Dose: 1 tab Documented by: [id number] Thiamine HCl (Thiamine Hcl 100 Mg Tab) 100 [facility] Stop: 07/17/21 20:09 Last Admin: 06/18/21 09:31 Dose: 100 mg Documented by: [id number] Admin: 06/17/21 21:51 Dose: 100 mg Documented by: [id number] Coding Level of Care Code 29777 U Intl Hosp Care Lvl 2 Diagnoses Alcohol withdrawal F10.239 Complication of substance-induced condition: with unspecified complication Time Spent (min) 45
--- NOTE | 2021-06-18 15:57 | Electrocardiogram Report ---
Test Reason : Blood Pressure : / mmHG Vent. Rate : 110 BPM Atrial Rate : 110 BPM P-R Int : 156 ms QRS Dur : 092 ms QT Int : 340 ms P-R-T Axes : 072 076 048 degrees QTc Int : 460 ms Sinus tachycardia Otherwise normal ECG When compared with ECG of 17-JUN-2021 16:57, (unconfirmed) No significant change Confirmed by Ivan Mccall ([id number]) on 06/18/2021 3:56:35 PM Referred By: REFERRED SELF Confirmed By:Ivan Mccall
--- NOTE | 2021-06-18 16:25 | Hospitalist Progress Note ---
Date of Service June 18, 2021 Assessment & Plan (1) Alcohol withdrawal: Plan: -Alcohol withdrawal scoring, gabapentin load and taper - Tachycardia with HR in 160s, monitor - Administered Ativan IV in the ER, likely what is causing him to be slightly drowsy currently, patient reports feeling overall better at this point - NSS at 150 ml/hr x 3 bags then if tolerating po intake can reduce fluids - Thiamine, folic acid, and mvi ordered - Check CT head with hx of possible fall-unremarkable -I cannot find record of previous ER visit Friday night, however the patient mentions that he has a fake ID which he uses to buy alcohol since he is underage, and question if a different patient account was created during that visit ?? -Psych consult - will need outpatient therapy, counseling, continue wellbutrin and lexapro for now -Clinically better -We will get PT and OT evaluation (2) Rhabdomyolysis: Plan: - IVFs as above - Bruising on bilateral wrists, ? from restraints on Friday? small amount of ecchymosis on posterior R triceps region ? from blood pressure cuff - CT head as above - No other focal point of obvious injury -CPK has come down to 700 range -Advised to drink plenty of fluid (3) History of anxiety: Plan: - Psych consult - continue medications as above (4) History of depression: Plan: - Psych consult - continue medications as above (5) Marijuana use: Plan: - Cessation advised DVT PPx: - teds CODE: Full code Dispo: From home, likely to remain in the hospital x 1-2 days Admission and Anticipated Discharge Date Admission Date: June 17, 2021 Subjective June 18, 2021 The patient was seen and examined in medical telemetry unit He has been feeling much better and he still has tremors involving the outstretched hands Denies any more drowsiness, palpitation or dizziness Review of Systems Review of Systems: All systems reviewed and are unremarkable as noted below Neurologic: Tremors involving the outstretched hands Physical Exam Physical Exam: Lying in bed comfortably Constitutional: well developed, well nourished and average body habitus; not ill appearing Eyes: PERRL, conjunctivae normal, anicteric sclerae ENMT: external ear and nose normal, oropharynx normal Neck: trachea midline, no thyromegaly Respiratory: normal respiratory effort, lungs clear to auscultation Cardiovascular: Rate/Rhythm: regular rate and regular rhythm; not tachycardic Heart Sounds: normal S1 and normal S2; no murmur Extremities: no edema Gastrointestinal (Abdomen): normal bowel sounds, soft, nontender, no hepatospl enomegaly Musculoskeletal: No acute arthritis in any joint Neurologic: Alert, awake and oriented x3. Minimal tremors involving the outstretched hands. No focal neuro deficit Psychiatric: A+Ox3, euthymic affect Lymphatic: no cervical or axillary lymphadenopathy Results & Data Results & Data ([facility]) Vital Signs (Past 12 Hours) Vital Signs Temp Pulse Pulse Resp BP Pulse Ox 06/18/21 15:55 36.9 C 87 16 101/66 97 06/18/21 15:00 66 06/18/21 11:13 36.8 C 100 H 16 122/69 98 06/18/21 07:34 36.6 C 94 H 16 118/73 97 06/18/21 07:00 73 Laboratory Results Short CBC 06/17/21 06/18/21 Range/Units 17:10 05:49 WBC 13.61 H 6.94 (4.8-10.8) K/uL Hgb 14.5 12.2 L (14.0-18.0) g/dL Hct 43.6 37.6 L (42-52) % Plt Count 432 H 274 (130-400) K/uL BMP 06/17/21 06/18/21 17:10 05:49 Sodium 140 141 Potassium 4.0 3.8 Chloride 104 109 H Carbon Dioxide 19 L 22 BUN 16 12 Creatinine 1.19 0.69 D Glucose 143 H 67 L Calcium 9.2 8.5 Cardiac Enzymes 06/17/21 06/18/21 Range/Units 17:10 05:49 Total Creatine Kinase 1136 H 744 H (39-308) U/L Troponin I < 0.015 (0-0.045) ng/ml Liver Function 06/17/21 06/18/21 Range/Units 17:10 05:49 Total Bilirubin 2.1 H 1.7 H (0.2-1) mg/dl Direct Bilirubin 0.3 H (0-0.2) mg/dl AST 46 H 32 (15-37) U/L ALT 35 28 (12-78) U/L Alkaline Phosphatase 75 58 (45-117) U/L Albumin 4.4 3.5 (3.4-5.0) gm/dl Urine 06/17/21 Range/Units 18:17 Urine Color Dark Yellow Urine Appearance Turbid A (Clear) Urine pH 5.5 (4.5-7.5) Ur Specific [place] 1.034 H (1.000-1.030) Urine Protein 1+ H (Negative) Urine Glucose (UA) 1+ H (Negative) Medications Administered Current Inpatient Medications Acetaminophen (Acetaminophen 325 Mg Tab) 650 mg PO Q4H PRN PRN Reason: Moderate Pain Stop: 07/17/21 20:09 Clonidine HCl (Clonidine Hcl 0.1 Mg Tab) 0.1 mg PO Q4H PRN PRN Reason: Hypertension Stop: 07/17/21 20:58 Folic Acid (Folic Acid 1 Mg Tab) [facility] Stop: 07/17/21 20:09 Last Admin: 06/18/21 09:31 Dose: 1 mg Documented by: Gabapentin (Gabapentin 400 Mg Cap) 400 mg PO Q8H [facility] Stop: 06/19/21 14:01 Gabapentin (Gabapentin 400 Mg Cap) 400 mg PO Q12H [facility] Stop: 06/20/21 12:01 Gabapentin (Gabapentin 400 Mg Cap) 400 mg PO Q24H [facility] Stop: 06/21/21 12:01 Lorazepam (Ativan) 1 mg in 2 mls @ 2 mls/min IV UD PRN; Protocol PRN Reason: EtOH Withdrawl AWSS Score 6,7 Stop: 07/17/21 20:32 Lorazepam (Ativan) 2 mg in 4 mls @ 4 mls/min IV UD PRN; Protocol PRN Reason: EtOH Withdrawl AWSS Score 8,9 Stop: 07/17/21 20:32 Lorazepam (Ativan) 3 mg in 6 mls @ 4 mls/min IV ONCE PRN; Protocol PRN Reason: EtOH Withdrawl AWSS Score >=10 Stop: 07/17/21 20:32 Multivitamins (Multivitamin Tab) [facility] Stop: 07/18/21 08:59 Last Admin: 06/18/21 09:31 Dose: 1 tab Documented by: Ondansetron HCl (Ondansetron Inj 2 Mg/Ml 2 Ml Vial) 4 mg IV Q4H PRN PRN Reason: Nausea And Vomiting Stop: 07/17/21 20:09 Thiamine HCl (Thiamine Hcl 100 Mg Tab) [facility] Stop: 07/17/21 20:09 Last Admin: 06/18/21 09:31 Dose: 100 mg Documented by: (1) Rhabdomyolysis Rhabdomyolysis type: non-traumatic Qualified Code(s): M62.82 - Rhabdomyolysis
[2021-06-18] MEDS ORDERED: buPROPion HCl 75 MG TABLET PO STA (19:45)
[2021-06-19] MEDS: GABAPENTIN 400 MG CAP PO SCH (05:21)
[2021-06-19 08:42] LABS: Hematocrit (blood only) 37.8 % (42-52); Hemoglobin 12.7 g/dL (14.0-18.0); Mean Corpuscular Hemoglobin 30.2 pg (25-34); Mean Corpuscular Hgb Conc 33.6 g/dL (32-36); Mean Platelet Volume 8.8 fL (7.4-10.4); Platelet Count 284 K/uL (130-400); RDW Coefficient of Variation 13.2 % (11.5-14.5); RDW Standard Deviation 42.8 fL (36.4-46.3); White Blood Count 6.25 K/uL (4.8-10.8)
[2021-06-19] MEDS: FOLIC ACID 1 MG TAB PO SCH (08:52)
[2021-06-19] MEDS: THIAMINE HCL 100 MG TAB PO SCH (08:52)
[2021-06-19] MEDS: MULTIVITAMIN TAB PO SCH (08:52)
[2021-06-19 08:59] LABS: Alanine Aminotransferase 30 U/L (12-78); Albumin Level 3.9 gm/dl (3.4-5.0); Aspartate Aminotransferase 28 U/L (15-37); Blood Urea Nitrogen 10 mg/dl (7-18); Calcium 9.1 mg/dl (8.5-10.1); Carbon Dioxide 22 mmol/L (21-32); Chloride 105 mmol/L (98-107); Creatinine Clr Calc Pharmacy 164.7 ml/min; Est GFR (African American) > 150.0 ml/min; Est GFR (Non-African American) 130.6 ml/min; Glucose 60 mg/dl (70-99); Magnesium 2.3 mg/dl (1.8-2.4); Potassium 3.8 mmol/L (3.5-5.1); Sodium 139 mmol/L (136-145)
[2021-06-19] MEDS ORDERED: ESCITALOPRAM OXALATE 10 MG TAB PO SCH (09:00)
[2021-06-19] MEDS ORDERED: buPROPion XL 150 MG TABCR PO SCH (09:00)
[2021-06-19 09:02] LABS: Albumin Globulin Ratio 1.1 (0.9-2); Alkaline Phosphatase 59 U/L (45-117); Bilirubin,Total 1.9 mg/dl (0.2-1); Globulin 3.6 gm/dl (2.5-4.0); Phosphorus 3.2 mg/dl (2.5-4.9); Total Protein 7.5 gm/dl (6.4-8.2)
--- NOTE | 2021-06-19 12:32 | Hospitalist Progress Note ---
Date of Service June 19, 2021 Assessment & Plan (1) Alcohol withdrawal: Plan: -Alcohol withdrawal scoring, gabapentin load and taper - Tachycardia with HR in 160s, monitor - Administered Ativan IV in the ER, likely what is causing him to be slightly drowsy currently, patient reports feeling overall better at this point - NSS at 150 ml/hr x 3 bags then if tolerating po intake can reduce fluids - Thiamine, folic acid, and mvi ordered - Check CT head with hx of possible fall-unremarkable -I cannot find record of previous ER visit Friday night, however the patient mentions that he has a fake ID which he uses to buy alcohol since he is underage, and question if a different patient account was created during that visit ?? -Psych consult - will need outpatient therapy, counseling, continue wellbutrin and lexapro for now -Clinically better -We will get PT and OT evaluation-appreciate input and recommendation No more symptoms of withdrawal Will be discharged home this afternoon (2) Rhabdomyolysis: Plan: - IVFs as above - Bruising on bilateral wrists, ? from restraints on Friday? small amount of ecchymosis on posterior R triceps region ? from blood pressure cuff - CT head as above - No other focal point of obvious injury -CPK has come down to 700 range -Advised to drink plenty of fluid (3) History of anxiety: Plan: - Psych consult - continue medications as above (4) History of depression: Plan: - Psych consult - continue medications as above (5) Marijuana use: Plan: - Cessation advised DVT PPx: - teds CODE: Full code Dispo: From home, likely to remain in the hospital x 1-2 days Admission and Anticipated Discharge Date Admission Date: June 17, 2021 Subjective June 18, 2021 The patient was seen and examined in medical telemetry unit He has been feeling much better and he still has tremors involving the outstretched hands Denies any more drowsiness, palpitation or dizziness 06/19/2021 The patient was seen and examined in medical telemetry unit He has been feeling much better and denies any symptoms He has had physical therapy and did very well No tremors Review of Systems Review of Systems: All systems reviewed and are unremarkable as noted below Neurologic: Tremors involving the outstretched hands-resolved Physical Exam Physical Exam: Lying in bed comfortably Constitutional: well developed, well nourished and average body habitus; not ill appearing Eyes: PERRL, conjunctivae normal, anicteric sclerae ENMT: external ear and nose normal, oropharynx normal Neck: trachea midline, no thyromegaly Respiratory: normal respiratory effort, lungs clear to auscultation Cardiovascular: Rate/Rhythm: regular rate and regular rhythm; not tachycardic Heart Sounds: normal S1 and normal S2; no murmur Extremities: no edema Gastrointestinal (Abdomen): normal bowel sounds, soft, nontender, no hepatosplenomegaly Musculoskeletal: No acute arthritis in any joint Neurologic: No tremors and no palpitation Psychiatric: A+Ox3, euthymic affect Lymphatic: no cervical or axillary lymphadenopathy Results & Data Results & Data ([facility]) Vital Signs (Past 12 Hours) Vital Signs Temp Pulse Pulse Resp BP BP Pulse Ox 06/19/21 11:37 36.7 C 77 17 127/76 97 06/19/21 07:51 68 06/19/21 07:35 36.5 C 73 18 129/72 99 06/19/21 07:00 36.8 C 94 H 18 121/80 99 06/19/21 03:50 36.7 C 67 18 133/80 97 Laboratory Results Short CBC 06/19/21 Range/Units 07:46 WBC 6.25 (4.8-10.8) K/uL Hgb 12.7 L (14.0-18.0) g/dL Hct 37.8 L (42-52) % Plt Count 284 (130-400) K/uL BMP 06/19/21 07:46 Sodium 139 Potassium 3.8 Chloride 105 Carbon Dioxide 22 BUN 10 Creatinine 0.77 Glucose 60 L Calcium 9.1 Liver Function 06/19/21 Range/Units 07:46 Total Bilirubin 1.9 H (0.2-1) mg/dl AST 28 (15-37) U/L ALT 30 (12-78) U/L Alkaline Phosphatase 59 (45-117) U/L Albumin 3.9 (3.4-5.0) gm/dl Medications Administered Current Inpatient Medications Acetaminophen (Acetaminophen 325 Mg Tab) 650 mg PO Q4H PRN PRN Reason: Moderate Pain Stop: 07/17/21 20:09 Bupropion HCl (Bupropion Xl 150 Mg Tabcr) 150 mg PO DAILY JONAH Stop: 07/19/21 08:59 Last Admin: 06/19/21 08:52 Dose: 150 mg Documented by: Clonidine HCl (Clonidine Hcl 0.1 Mg Tab) 0.1 mg PO Q4H PRN PRN Reason: Hypertension Stop: 07/17/21 20:58 Escitalopram Oxalate (Escitalopram Oxalate 10 Mg Tab) 10 mg PO DAILY [facility] Stop: 07/19/21 08:59 Last Admin: 06/19/21 08:52 Dose: 10 mg Documented by: Folic Acid (Folic Acid 1 Mg Tab) [facility] [place] Stop: 07/17/21 20:09 Last Admin: 06/19/21 08:52 Dose: 1 mg Documented by: Gabapentin (Gabapentin 400 Mg Cap) 400 mg PO Q8H [facility] Stop: 06/19/21 14:01 Last Admin: 06/19/21 05:21 Dose: 400 mg Documented by: Gabapentin (Gabapentin 400 Mg Cap) 400 mg PO Q12H [facility] Stop: 06/20/21 12:01 Gabapentin (Gabapentin 400 Mg Cap) 400 mg PO Q24H [facility] Stop: 06/21/21 12:01 Lorazepam (Ativan) 1 mg in 2 mls @ 2 mls/min IV UD PRN; Protocol PRN Reason: EtOH Withdrawl AWSS Score 6,7 Stop: 07/17/21 20:32 Lorazepam (Ativan) 2 mg in 4 mls @ 4 mls/min IV UD PRN; Protocol PRN Reason: EtOH Withdrawl AWSS Score 8,9 Stop: 07/17/21 20:32 Lorazepam (Ativan) 3 mg in 6 mls @ 4 mls/min IV ONCE PRN; Protocol PRN Reason: EtOH Withdrawl AWSS Score >=10 Stop: 07/17/21 20:32 Multivitamins (Multivitamin Tab) 1 [facility] [place] Stop: 07/18/21 08:59 Last Admin: 06/19/21 08:52 Dose: 1 tab Documented by: Ondansetron HCl (Ondansetron Inj 2 Mg/Ml 2 Ml Vial) 4 mg IV Q4H PRN PRN Reason: Nausea And Vomiting Stop: 07/17/21 20:09 Thiamine HCl (Thiamine Hcl 100 Mg Tab) 100 [facility] [place] Stop: 07/17/21 20:09 Last Admin: 06/19/21 08:52 Dose: 100 mg Documented by: (1) Rhabdomyolysis Rhabdomyolysis type: non-traumatic Qualified Code(s): M62.82 - Rhabdomyolysis
[2021-06-20] MEDS ORDERED: GABAPENTIN 400 MG CAP PO SCH
--- NOTE | 2021-06-20 08:17 | Discharge Summary ---
Date of Service June 20, 2021 Admission HPI Per Admitting Provider Chief Complaint: This is a 20 yo M with PMHx of anxiety, depression who presents with severe muscle cramps in his legs. His girlfriend and her mother are present with him at bedside. They report that he was here on Friday after being picked up by police and brought in for alcohol intoxication. He required soft restraints around his wrists due to aggitation. They are unaware if he fell at some point on Friday, however were told that at that time his potassium was low, it was replaced, he was given fluids and he was sent home. 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 The patient presented today with increased sweating, palpitations, dizziness, and generalized ill feeling with severe muscle soreness everywhere. Yesterday he was nauseous and vomited at home. He reports his urine is dark today compared to normal. Patient admits that he typically drinks maximum one quarter of a bottle of tequila daily, sometimes mixed with beer or other liquor such as vodka. The last time he drank alcohol was on Friday night. When asked if he wants to stop drinking alcohol, he says "in general, no". He uses a fake ID to obtain alcohol or else has other friends by his alcohol for him. He smokes marijuana routinely, 2-10 times daily. Girlfriend reports patient's father was an addict of recreational drugs, but not alcohol. He has a cousin who also drinks large amounts of alcohol. He does not smoke tobacco. He follows with psychiatry as an outpatient, but cannot recall the last time he seen them. He has been taking Wellbutrin 150 mg daily as well as Lexapro 10 mg daily for anxiety and depression. Missed these doses yesterday but other than that takes them routinely. He is found to be in rhabdomyolysis with a CK level = 1136, and appears to be in acute alcohol withdrawal. AST is mildly elevated at 46, anion gap of 17, leukocytosis with 13.6. Glucose is slightly elevated at 143 however he has not been able to eat anything today. Primary Care Provider: NO PCP Admission Exam Per Admitting Provider Physical Exam: General: awakens to verbal stimuli, but drifts off to sleep during exam, no apparent distress Head: Normocephalic, atraumatic ENT: PERRL, EOMI, no pharyngeal exudate, mucous membranes moist, no conjunctival hemorrhage Chest: Clear to auscultation, on room air, no adventitious breath sounds Cardiac: Regular rate and rhythm, no murmur, no JVD, normal peripheral pulses, good capillary refill Abdominal: NABS x 4 quadrants, soft, nondistended, nontender to palpation, no rebound or guarding Extremities: + Ecchymosis around wrists bilaterally, small area of ecchymosis on triceps region of right arm, no other areas of bruising noted, small abrasions over right gtz, otherwise normal inspection, no peripheral edema or erythema, calfs nontender to palpation Psych: Depressed mood and affect, denies SI or HI Neuro: AAO x 3, strength intact bilaterally and rated 5/5, no motor deficits, + slight tremor, speech is clear, no peripheral sensory deficits, no asterixis Principal Diagnosis Alcohol withdrawal, history of anxiety and depression Discharge Exam Constitutional well developed, well nourished and average body habitus; not ill appearing Eyes PERRL, conjunctivae normal, anicteric sclerae ENMT external ear and nose normal, oropharynx normal Neck trachea midline, no thyromegaly Respiratory normal respiratory effort, lungs clear to auscultation Cardiovascular Rate/Rhythm: regular rate and regular rhythm; not tachycardic Heart Sounds: normal S1 and normal S2; no murmur Extremities: no edema Gastrointestinal (Abdomen) normal bowel sounds, soft, nontender, no hepatosplenomegaly Psychiatric A+Ox3, euthymic affect Lymphatic no cervical or axillary lymphadenopathy Discharge Data Allergies Allergy/AdvReac Type Severity Reaction Status Date / Time No Known Allergies Allergy Unverified 06/17/21 17:39 Consultations 06/17/21 18:35 ED Decision to Admit Stat 06/17/21 19:38 Consult Psychiatry Routine Ordered Studies 06/17/21 19:32 CT head/brain wo con Stat Hospital Course (1) Alcohol withdrawal: -Alcohol withdrawal scoring, gabapentin load and taper - Tachycardia with HR in 160s, monitor - Administered Ativan IV in the ER, likely what is causing him to be slightly drowsy currently, patient reports feeling overall better at this point - NSS at 150 ml/hr x 3 bags then if tolerating po intake can reduce fluids - Thiamine, folic acid, and mvi ordered - Check CT head with hx of possible fall-unremarkable -I cannot find record of previous ER visit Friday night, however the patient mentions that he has a fake ID which he uses to buy alcohol since he is underage, and question if a different patient account was created during that visit ?? -Psych consult - will need outpatient therapy, counseling, continue wellbutrin and lexapro for now -Clinically better -We will get PT and OT evaluation-appreciate input and recommendation No more symptoms of withdrawal Will be discharged home this afternoon (2) Rhabdomyolysis: - IVFs as above - Bruising on bilateral wrists, ? from restraints on Friday? small amount of ecchymosis on posterior R triceps region ? from blood pressure cuff - CT head as above - No other focal point of obvious injury -CPK has come down to 700 range -Advised to drink plenty of fluid (3) History of anxiety: - Psych consult - continue medications as above (4) History of depression: - Psych consult - continue medications as above (5) Marijuana use: - Cessation advised DVT PPx: - teds CODE: Full code Dispo: From home, likely to remain in the hospital x 1-2 days Total Time Total Time Spent Total Time Spent (In Minutes): 35 minutes Discharge Plan Discharge Items Patient Disposition: Home - Self-Care Reason For Visit: RHABDOMYOLYSIS Discharge Diagnosis: Alcohol withdrawal, history of anxiety and depression Condition on Discharge: Good Activity: Resume your previous activity Non-emergency contact: Primary Care Provider Call non-emergency contact if: you have any medication questions and your symptoms worsen Follow-up/Referrals: PCP,NO [Primary Care Provider] - Diet: Regular Addtl Attending Provider Instructions: Strongly advised to quit drinking alcohol Advised to have follow-up appoint with primary care physician and outpatient psychologist/psychiatrist Pending Studies at Discharge: No Stand-Alone Forms: [employer] Mobile, Smoking Cessation Medications and DC Order Prescriptions: New thiamine HCl (vitamin B1) [Vitamin B-1] 100 mg Tablet 100 mg PO QAM 30 Days Qty: 30 RF: 0 folic acid 1 mg Tablet 1 mg PO QAM 30 Days Qty: 30 RF: 0 gabapentin 400 mg capsule 400 mg PO UD Qty: 4 RF: 0 Continued escitalopram oxalate 10 mg tablet 10 mg PO DAILY RF: 0 bupropion HCl 150 mg tablet extended release 24 hr 150 mg PO DAILY RF: 0 Discharge Orders: Discharge Order (Routine); Ordered 06/19/21 Ordered By: Alejandro Santiago/Other Patient Handouts: Alcoholism Resources, ED Alcohol Withdrawal Admission Data Admit Date/Time: 06/17/21 18:43 Attending Provider: Alejandro Swenson Admit Provider: Alejandro Swenson Primary Care Provider: PCP,NO Other Providers: Alejandro Swenson ; Shanell King ; Dr Darell ; Alysia Oneill ; Ankur Gonzalez Other Interventions: Discharge Summary Assessment (RN) Last Done: 06/19/21 12:49
--- NOTE | 2021-06-20 10:09 | Electrocardiogram Report ---
Test Reason : Blood Pressure : / mmHG Vent. Rate : 109 BPM Atrial Rate : 109 BPM P-R Int : 162 ms QRS Dur : 088 ms QT Int : 350 ms P-R-T Axes : 073 083 068 degrees QTc Int : 471 ms Sinus tachycardia Right atrial enlargement Borderline ECG No previous ECGs available Confirmed by Ivan Mccall ([id number]) on 06/20/2021 10:09:11 AM Referred By: REFERRED SELF Confirmed By:Ivan Mccall
[2021-06-21 08:16] LABS: Cocaine, Urine 259 ng/mL (<100); MDA negative; MDEA negative; MDMA (Ecstasy) Urine, Confirm negative; Marijuana Quant, GCMS Urine 2660 ng/mL (<5)
[2021-06-21] MEDS ORDERED: GABAPENTIN 400 MG CAP PO SCH (12:00)
== END 2021-06-19 13:24 | disposition home or self-care (01) ==
LOC: ED 16:47 → INTOOBSV 18:43 → 2N 18:43
DX: F32.9 Major depressive disorder, single episode, unspecified; F10.239 Alcohol dependence with withdrawal, unspecified; F41.9 Anxiety disorder, unspecified; Z79.899 Other long term (current) drug therapy; M62.82 Rhabdomyolysis